=== PATIENT | male | born 1935 | race Caucasian/White ===

== ENCOUNTER 2016-09-12 10:38 | Emergency (ER) | payer BC ==
[~2016-09-12] VITALS: Ht 180.3 cm; Wt 86.6 kg
[~2016-09-12 10:38] MED LIST: ERTA1INJ IV; FURO20TA PO; PRT40 PO; TPRSR/25 PO
[2016-09-12 10:40] VITALS: TEMP 36.6; Ht 180.3 cm; Wt 86.6 kg
[2016-09-12 10:56] VITALS: O2SAT 97
--- NOTE | 2016-09-12 11:22 | EMERGENCY ROOM VISIT NOTE ---
ED Visit Note First contact with patient: 11:08 Resident Physician Supervision Note: I was present with Dr. Jamil during the history and exam. I discussed the case with the resident and agree with the findings and plan as documented in the note. Documented By: Obed Roman Problem List Medical Problems: (1) Anemia Status: Chronic (2) Aneurysm of thoracic aorta Status: Resolved (3) Atrial fibrillation Status: Chronic (4) Benign hypertension Status: Chronic (5) Coronary artery disease Status: Chronic (6) Diastolic heart failure Status: Chronic (7) dilated acending aorta Status: Chronic (8) Dyslipidemia Status: Chronic (9) Iron deficiency Status: Chronic (10) Mitral valve regurgitation Status: Resolved Current/Historical Medications Scheduled Ertapenem Sodium (Invanz), 1 GM IV DAILY Furosemide (Lasix), 20 MG PO QD Metoprolol Succinate (Metoprolol Succinate ER), 25 MG PO BID Pantoprazole (Pantoprazole Sodium), 40 MG PO QAM Allergies Coded Allergies: No Known Allergies (Unverified , 01/08/16) Vital Signs Date Time Temp Pulse Resp B/P Pulse Ox O2 Delivery O2 Flow Rate FiO2 09/12/16 10:56 97 Room Air 09/12/16 10:54 97 Room Air 09/12/16 10:40 36.6 44 20 176/77 94 Room Air Laboratory Results Test 09/12/16 11:19 Departure Information Referrals Priya Enrique DO (PCP) Patient Instructions My [facility]
--- NOTE | 2016-09-12 11:26 | EMERGENCY ROOM VISIT NOTE ---
History First contact with patient: 11:08 Chief Complaint: BRADYCARDIA Stated Complaint: HYPERTENSION, BRADYCARDIA HX: CARDIAC Nursing Triage Summary: Pt reports for 4 days he has been bradycardic in the 40s. Pt reports he normally runs in the 50s. Pt reports headache and SOB. Denies chest pain, dizziness. Pt takes Metoprolol 25mg twice daily. Pt has history of cardiac surgery in 2013. Family reports he has a known abdominal aneurysm History of Present Illness The patient is a 81 year old male who presents to the Emergency Room from home with complaints of elevated blood pressure and low heart rate. He has a history of coronary artery disease and previously received bypass, during which he had a thoracic aortic aneurysm rupture. He also has a history of an iliac aortic aneurysm. He reports usually has blood pressure is in the 120 systolic range but today it was 177 and his heart rate was lower than usual at a rate of 45 beats He has been feeling short of breath on exertion the last 4 days but denies any chest pain currently. He does take a beta sandra every day which is metoprolol succinate 25 mg BID. He reports over the last 5 days he was visiting his son in [facility] and his diet was high in salt content. He knows he needs to maintain a low-salt diet due to his congestive heart failure but reports he did not. He reports since he came back he has noticed his blood pressure has been elevated. He denies any nausea, vomiting, or leg swelling . Review of Systems See HPI for pertinent positives & negatives. A total of 10 systems reviewed and were otherwise negative. Past Medical/Surgical History Medical Problems: (1) Anemia (2) Aneurysm of thoracic aorta (3) Atrial fibrillation (4) Benign hypertension (5) Coronary artery disease (6) Diastolic heart failure (7) dilated acending aorta (8) Dyslipidemia (9) Iron deficiency (10) Mitral valve regurgitation (11) Pancreatitis Family History Diabetes mellitus Gallbladder disease Heart disease Hypertension Social History Smoking Status: Former Smoker Alcohol Use: occasionally Drug Use: none Marital Status: Housing Status: lives with family Occupation Status: retired, other Current/Historical Medications Scheduled Aspirin (Aspirin Ec), 81 MG PO DAILY Atorvastatin (Lipitor), 40 MG PO QPM Lisinopril (Lisinopril), 5 MG PO DAILY Metoprolol Succinate (Metoprolol Succinate ER), 25 MG PO BID Warfarin Sod (Jantoven), 2.5 MG PO DIRECTED Warfarin Sod (Jultoven), 5 MG PO MWF Allergies Coded Allergies: No Known Allergies (Unverified , 09/12/16) Physical Exam Vital Signs Date Time Temp Pulse Resp B/P Pulse Ox O2 Delivery O2 Flow Rate FiO2 09/12/16 14:43 58 18 154/64 98 Room Air 09/12/16 13:17 44 16 163/80 98 Room Air 09/12/16 12:03 44 18 173/75 98 Room Air 09/12/16 11:36 44 09/12/16 10:56 97 Room Air 09/12/16 10:54 97 Room Air 09/12/16 10:40 36.6 44 20 176/77 94 Room Air Physical Exam GENERAL: Awake, alert, well-appearing, in no acute distress HENT: Normocephalic, atraumatic. Oropharynx unremarkable. EYES: Normal conjunctiva. Sclera non-icteric. NECK: Supple. No nuchal rigidity. FROM. No JVD. RESPIRATORY: Clear to auscultation. CARDIAC: Bradycardic, irregular. Extremities warm and well perfused. Pulses equal. ABDOMEN: Soft, non-distended. No tenderness to palpation. No rebound or guarding. No masses. RECTAL: Deferred. MUSCULOSKELETAL: Chest examination reveals no tenderness. The back is symmetrical on inspection without obvious abnormality. There is no CVA tenderness to palpation. No joint edema. LOWER EXTREMITIES: Calves are equal size bilaterally and non-tender. No edema. No discoloration. NEURO: Normal sensorium. No sensory or motor deficits noted. SKIN: No rash or jaundice noted. Medical Decision & Procedures ER Provider Diagnostic Interpretation: CT ANGIOGRAM OF THE CHEST, ABDOMEN, AND PELVIS WITH IV CONTRAST CLINICAL HISTORY: Hypertension. Bradycardia. History of aneurysm and dissection. COMPARISON STUDY: CT angiogram of the chest, abdomen, and pelvis dated 01/02/2016. TECHNIQUE: Following the IV administration of 118 cc of Optiray 320, CT angiogram of the chest, abdomen, and pelvis was performed from the thoracic inlet to the proximal femora. Images are reviewed in the axial, sagittal, and coronal planes. 3-D MIPS images are created and assessed. IV contrast was administered without complication. Automated dose control exposure was utilized. CT DOSE: 893.19 mGy.cm FINDINGS: CHEST: Thyroid: Imaged portions of the thyroid gland are normal in size and attenuation. Thoracic aorta: There is atherosclerotic calcification of the thoracic aorta. The arch demonstrates standard 3-vessel anatomy. There is evidence of previous surgical repair of the ascending thoracic aorta. The ascending thoracic aorta and aortic arch are normal in caliber. There is aneurysmal dilatation of the descending thoracic aorta with significant intraluminal thrombus, which originates just distal to the left subclavian artery takeoff. The descending thoracic aorta measures up to 4.4 cm in maximum diameter. There is dissection identified within the abdominal aorta, and the thrombus identified may represent a thrombosed dissection. The arch vessels are widely patent and there is no dissection identified in the arch vessels. There is unchanged appearance of a tiny outpouching of contrast seen from the ascending thoracic aorta on image #170 measuring 5 mm. Pulmonary vasculature: The pulmonary trunk is dilated, measuring up to 3.9 cm in transverse diameter. This suggests pulmonary artery hypertension. There are no filling defects identified in the central pulmonary vessels to indicate pulmonary embolus. Note that this examination was not protocoled for evaluation of the pulmonary arteries. Heart: The patient is status post midline sternotomy. There is evidence of mitral valve surgery. The coronary arteries are densely calcified. The heart is enlarged and without pericardial effusion. Lungs and pleural spaces: Emphysematous changes are noted. There are small pleural effusions. There is significant bibasilar atelectasis and scarring. A 3 mm left upper lobe nodule on image #124 is unchanged. Scattered calcified granulomas are identified. There is no airspace consolidation typical for pneumonia. The trachea and central airways are clear. Mediastinum: Scattered subcentimeter mediastinal lymph nodes are not pathologically enlarged by size criteria. Rita: Clear. Axillae: There is no axillary lymphadenopathy. Bony thorax: The skeletal structures are osteopenic. No lytic or blastic lesions are identified. There is a healed right-sided rib fracture. Degenerative changes are seen in the shoulders and thoracic spine. ABDOMEN AND PELVIS: Liver: The contrast-enhanced liver is normal in size, contour, and attenuation. There is no intrahepatic or ductal dilatation. Gallbladder: Unremarkable. Spleen: Normal in size and attenuation noting heterogeneous arterial phase enhancement. Pancreas: There is moderate glandular atrophy of the pancreas which is grossly unremarkable. Adrenal glands: Unremarkable. Kidneys: The kidneys are atrophic, asymmetrically greater on the right than the left. The left kidney enhances homogeneously. There is heterogeneously diminished perfusion of the right kidney as compared to the left. No hydronephrosis is seen. A 10 mm cortical hypodensity in the right kidney seen on axial image #306 may represent a cyst but is too small for definitive characterization. This is unchanged from previous. Abdominal aorta and iliac arteries: There is advanced atherosclerotic calcification and ectasia of the abdominal aorta. There is a dissection flap identified at the esophageal hiatus, which extends peripherally to the aortic bifurcation and into the left external iliac artery. Significant portions of the dissection appear thrombosed, with thrombosis seen below the takeoff of the right renal artery and extending to just above the origin of the inferior mesenteric artery. Thrombus is also identified within the dissection in the left common iliac artery. The abdominal aorta is widely patent. The iliac vessels are patent bilaterally. There is aneurysm of the right common iliac artery which measures up to 3.1 cm. There is a right internal iliac artery aneurysm which measures up to 1.5 cm. Major branches of the abdominal aorta: The celiac trunk is widely patent. Dissection extends into the origin of the celiac trunk, and the celiac artery straddles the true and false lumens. The left renal artery and the superior mesenteric artery arise from the true lumen. The right renal artery and the inferior mesenteric artery arise from the false lumen. The single renal arteries are widely patent, as are the superior and inferior mesenteric arteries. Hepatic arterial anatomy is conventional. The splenic artery is patent. Bowel: The small bowel and colon are normal in course and caliber. There is moderate sigmoid diverticulosis without CT evidence of acute diverticulitis. Mild colonic fecal retention is observed. The appendix is not identified and reported surgically absent. Peritoneum: There is no intraperitoneal free air or abdominal ascites. There is a fat-containing umbilical hernia. Lymphadenopathy: None. Pelvic viscera: The bladder is grossly unremarkable. The prostate gland and seminal vesicles are normal as visualized. Surgical clips are noted in the left groin. Skeletal structures: The skeletal structures are osteopenic. No lytic or blastic lesions are seen. There is mild lumbosacral spondylosis. IMPRESSION: 1. Again seen are postoperative changes consistent with graft repair of the ascending thoracic aorta. 2. 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 A discrete dissection flap is seen at the level of the esophageal hiatus and extends distally into the left external iliac artery. This likely originates in the thoracic aorta. These findings are unchanged from 01/02/2016. 3. 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 There is significant intraluminal thrombus, which originates just distal to the subclavian artery takeoff. This likely represents a thrombosed false lumen. 4. There is a 5 mm focal outpouching of contrast identified from the ascending thoracic aorta. This likely represents postsurgical change. A small penetrating ulcer is considered less likely but not excluded. This is unchanged from 01/02/2016. 5. The right renal artery and the inferior mesenteric artery arise from the false lumen. The left renal artery and the superior mesenteric artery arise from the true lumen. 6. The celiac artery straddles the dissection flap, and there is minimal extension of the dissection into the celiac trunk. 7. The kidneys are atrophic. The right kidney is asymmetrically atrophic as compared to left and demonstrates diminished perfusion as compared to the left kidney. This likely represents chronic ischemic change, as the right kidney is supplied from the false lumen. 8. Cardiomegaly and emphysema. 9. Small pleural effusions. 10. No acute infectious or inflammatory findings are seen in the abdomen or pelvis. 11. Moderate sigmoid diverticulosis without CT evidence of acute diverticulitis. 12. 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 13. Additional findings as above. Laboratory Results 09/12/16 11:00 Red Blood Count 4.13, Mean Corpuscular Volume 94.4, Mean Corpuscular Hemoglobin 33.2, Mean Corpuscular Hemoglobin Concent 35.1, Mean Platelet Volume 9.3, Neutrophils (%) (Auto) 67.1, Lymphocytes (%) (Auto) 18.2, Monocytes (%) (Auto) 10.9, Eosinophils (%) (Auto) 3.0, Basophils (%) (Auto) 0.5, Neutrophils # (Auto ) 4.31, Lymphocytes # (Auto) 1.17, Monocytes # (Auto) 0.70, Eosinophils # (Auto ) 0.19, Basophils # (Auto) 0.03 09/12/16 11:00 Test 09/12/16 11:00 09/12/16 11:35 White Blood Count 6.42 K/uL (4.8-10.8) Red Blood Count 4.13 M/uL (4.7-6.1) Hemoglobin 13.7 g/dL (14.0-18.0) Hematocrit 39.0 % (42-52) Mean Corpuscular Volume 94.4 fL (80-100) Mean Corpuscular Hemoglobin 33.2 pg (25-34) Mean Corpuscular Hemoglobin Concent 35.1 g/dl (32-36) Platelet Count 129 K/uL (130-400) Mean Platelet Volume 9.3 fL (7.4-10.4) Neutrophils (%) (Auto) 67.1 % Lymphocytes (%) (Auto) 18.2 % Monocytes (%) (Auto) 10.9 % Eosinophils (%) (Auto) 3.0 % Basophils (%) (Auto) 0.5 % Neutrophils # (Auto) 4.31 K/uL (1.4-6.5) Lymphocytes # (Auto) 1.17 K/uL (1.2-3.4) Monocytes # (Auto) 0.70 K/uL (0.11-0.59) Eosinophils # (Auto) 0.19 K/uL (0-0.5) Basophils # (Auto) 0.03 K/uL (0-0.2) RDW Standard Deviation 46.1 fL (36.4-46.3) RDW Coefficient of Variation 13.3 % (11.5-14.5) Immature Granulocyte % (Auto) 0.3 % Immature Granulocyte # (Auto) 0.02 K/uL (0.00-0.02) Prothrombin Time 22.1 SECONDS (9.0-12.0) Prothromb Time International Ratio 2.0 (0.9-1.1) Activated Partial Thromboplast Time 35.7 SECONDS (21.0-31.0) Partial Thromboplastin Ratio 1.4 Est Creatinine Clear Calc Drug Dose 47.4 ml/min Estimated GFR () 59.3 Estimated GFR (Non- 51.2 BUN/Creatinine Ratio 17.1 (10-20) Calcium Level 8.6 mg/dl (8.5-10.1) Total Bilirubin 0.9 mg/dl (0.2-1) Aspartate Amino Transf (AST/SGOT) 38 U/L (15-37) Alanine Aminotransferase (ALT/SGPT) 42 U/L (12-78) Alkaline Phosphatase 106 U/L (45-117) Total Protein 7.2 gm/dl (6.4-8.2) Albumin 3.8 gm/dl (3.4-5.0) Globulin 3.4 gm/dl (2.5-4.0) Albumin/Globulin Ratio 1.1 (0.9-2) Bedside Hemoglobin 13.3 g/dl (14.0-18.0) Bedside Hematocrit 39 % (42-52) Bedside Sodium 139 mEq/L (135-144) Bedside Potassium 4.5 mEq/L (3.3-5.0) Bedside Chloride 98 mEq/L (101-112) Bedside Total CO2 29 mEq/l (24-31) Anion Gap 17.0 mmol/L (16-25) Bedside Blood Urea Nitrogen 24 mg/dl (7-18) Bedside Creatinine 1.1 mg/dl (0.6-1.3) Bedside Glucose (other) 82 mg/dl (70-99) Bedside Ionized Calcium (Chito) 1.19 mmol/l (1.12-1.32) Medications Administered Medications (Trade) Dose Ordered Sig/Loretta Route Start Time Stop Time Status Last Admin Dose Admin Sodium Chloride (Nss 500ml) 500 ml @ 999 mls/hr Q31M STAT IV 09/12/16 13:11 09/12/16 13:41 DC 09/12/16 13:15 999 MLS/HR ECG Indication: chest pain Rhythm: sinus bradycardia Findings: 1st degree AV block Change: no significant change ED Course 1105:I evaluated the patient and C4. A complete history and physical was performed 11:10: I discussed the case with Dr. Roman attending physician I called the CT department and discussed how I wanted to get a stat CT aorta angiogram to evaluate for any active bleeding from his aneurysm and include a thoracic and iliac regions. I ordered a CBC CMP i-STAT chest x-ray. He had an IV placed and labs were drawn. 12:45: I re-evaluated the patient. His BP was still in the 150's systolic. His HR remained in the 45-50 bpm range. He did not have any other new symptoms. We discussed how his CT Angiogram did not show any active bleeding. 13:11: I provided a fluid bolus of 500 mL of normal saline over 1 hour. 14:20: His blood pressure improved after this fluid bolus. It was then 154/64. 14:38: We ambulated the patient and he tolerated this well his blood pressure was again 154/64 with a heart rate of 58. He was deemed stable for discharge and was discharged home in good condition and advised to follow-up with his PCP and maori physiotherapist. Medical Decision This is an 81-year-old male with history of coronary artery disease status post CABG, and multiple previous thoracic and iliac aortic aneurysms, who presents with hypertension and bradycardia, without any symptoms. Differential includes aortic aneurysm dissection, PR, dehydration, pneumonia, anemia. He had an IV placed and labs drawn. He had an i-STAT completed so his creatinine to be evaluated prior to CAT scan. 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 He seems slightly dehydrated and we provided him with a bolus of IV fluids which helped improve his blood pressure. His bradycardia is likely due to his beta sandra, as he is on metoprolol succinate twice a day at a dose of 25 mg. He ambulated well and his blood pressure had decreased throughout his stay in the ED. He was deemed stable for discharge and was sent home in good condition. He was advised to follow-up with his maori physiotherapist Dr. Stack and his PCP within the week. Departure Information Dispostion Home / Self-Care Condition GOOD Referrals Priya Enrique DO (PCP) Patient Instructions My [facility] Resident Tracking Resident Involvement: Resident Care Provided Care Provided: Adult ED
[2016-09-12 11:27] LABS: BASO % 0.5 %; BASO ABS # 0.03 K/uL (0-0.2); COMPLETE YES; IG% 0.3 %; LYMPH % 18.2 %; LYMPH ABS # 1.17 K/uL (1.2-3.4); MEAN CELL VOLUME 94.4 fL (80-100); MEAN CORPUSCULAR HEMOGLOBIN 33.2 pg (25-34); MEAN CORPUSCULAR HGB CONC 35.1 g/dl (32-36); MEAN PLATELET VOLUME 9.3 fL (7.4-10.4); MONO % 10.9 %; NEUT % 67.1 %; PLATELET COUNT 129 K/uL (130-400); RED BLOOD COUNT 4.13 M/uL (4.7-6.1); WHITE BLOOD COUNT 6.42 K/uL (4.8-10.8)
[2016-09-12] MEDS ORDERED: OPTIRAY 320 IV PRN (11:30)
[2016-09-12] MEDS ORDERED: ASPI81TA28 PO (11:37)
[2016-09-12] MEDS ORDERED: LSN5 PO (11:37)
[2016-09-12] MEDS ORDERED: ATOR-24 PO (11:37)
[2016-09-12] MEDS ORDERED: WARF5TAB7 PO (11:38)
[2016-09-12] MEDS ORDERED: WARF2.5T8 PO (11:38)
[2016-09-12 11:42] LABS: PARTIAL THROMBOPLASTIN RATIO 1.4; PROTHROMBIN TIME (PATIENT) 22.1 SECONDS (9.0-12.0)
[2016-09-12 11:43] LABS: BUN/CREATININE RATIO 17.1 (10-20); CALCIUM 8.6 mg/dl (8.5-10.1); CREATININE 1.3 mg/dl (0.60-1.40); POTASSIUM 4.5 mmol/L (3.5-5.1)
[2016-09-12 11:45] LABS: ISTAT CREATININE 1.1 mg/dl (0.6-1.3); ISTAT HEMOGLOBIN 13.3 g/dl (14.0-18.0); ISTAT IONIZED CALCIUM 1.19 mmol/l (1.12-1.32)
[2016-09-12 11:46] LABS: ALB/GLOB RATIO 1.1 (0.9-2)
--- NOTE | 2016-09-12 12:17 | DIAGNOSTIC IMAGING REPORT ---
CT ANGIOGRAM OF THE CHEST, ABDOMEN, AND PELVIS WITH IV CONTRAST CLINICAL HISTORY: Hypertension. Bradycardia. History of aneurysm and dissection. COMPARISON STUDY: CT angiogram of the chest, abdomen, and pelvis dated 01/02/2016. TECHNIQUE: Following the IV administration of 118 cc of Optiray 320, CT angiogram of the chest, abdomen, and pelvis was performed from the thoracic inlet to the proximal femora. Images are reviewed in the axial, sagittal, and coronal planes. 3-D MIPS images are created and assessed. IV contrast was administered without complication. Automated dose control exposure was utilized. CT DOSE: 893.19 mGy.cm FINDINGS: CHEST: Thyroid: Imaged portions of the thyroid gland are normal in size and attenuation. Thoracic aorta: There is atherosclerotic calcification of the thoracic aorta. The arch demonstrates standard 3-vessel anatomy. There is evidence of previous surgical repair of the ascending thoracic aorta. The ascending thoracic aorta and aortic arch are normal in caliber. There is aneurysmal dilatation of the descending thoracic aorta with significant intraluminal thrombus, which originates just distal to the left subclavian artery takeoff. The descending thoracic aorta measures up to 4.4 cm in maximum diameter. There is dissection identified within the abdominal aorta, and the thrombus identified may represent a thrombosed dissection. The arch vessels are widely patent and there is no dissection identified in the arch vessels. There is unchanged appearance of a tiny outpouching of contrast seen from the ascending thoracic aorta on image #170 measuring 5 mm. Pulmonary vasculature: The pulmonary trunk is dilated, measuring up to 3.9 cm in transverse diameter. This suggests pulmonary artery hypertension. There are no filling defects identified in the central pulmonary vessels to indicate pulmonary embolus. Note that this examination was not protocoled for evaluation of the pulmonary arteries. Heart: The patient is status post midline sternotomy. There is evidence of mitral valve surgery. The coronary arteries are densely calcified. The heart is enlarged and without pericardial effusion. Lungs and pleural spaces: Emphysematous changes are noted. There are small pleural effusions. There is significant bibasilar atelectasis and scarring. A 3 mm left upper lobe nodule on image #124 is unchanged. Scattered calcified granulomas are identified. There is no airspace consolidation typical for pneumonia. The trachea and central airways are clear. Mediastinum: Scattered subcentimeter mediastinal lymph nodes are not pathologically enlarged by size criteria. Rita: Clear. Axillae: There is no axillary lymphadenopathy. Bony thorax: The skeletal structures are osteopenic. No lytic or blastic lesions are identified. There is a healed right-sided rib fracture. Degenerative changes are seen in the shoulders and thoracic spine. ABDOMEN AND PELVIS: Liver: The contrast-enhanced liver is normal in size, contour, and attenuation. There is no intrahepatic or ductal dilatation. Gallbladder: Unremarkable. Spleen: Normal in size and attenuation noting heterogeneous arterial phase enhancement. Pancreas: There is moderate glandular atrophy of the pancreas which is grossly unremarkable. Adrenal glands: Unremarkable. Kidneys: The kidneys are atrophic, asymmetrically greater on the right than the left. The left kidney enhances homogeneously. There is heterogeneously diminished perfusion of the right kidney as compared to the left. No hydronephrosis is seen. A 10 mm cortical hypodensity in the right kidney seen on axial image #306 may represent a cyst but is too small for definitive characterization. This is unchanged from previous. Abdominal aorta and iliac arteries: There is advanced atherosclerotic calcification and ectasia of the abdominal aorta. There is a dissection flap identified at the esophageal hiatus, which extends peripherally to the aortic bifurcation and into the left external iliac artery. Significant portions of the dissection appear thrombosed, with thrombosis seen below the takeoff of the right renal artery and extending to just above the origin of the inferior mesenteric artery. Thrombus is also identified within the dissection in the left common iliac artery. The abdominal aorta is widely patent. The iliac vessels are patent bilaterally. There is aneurysm of the right common iliac artery which measures up to 3.1 cm. There is a right internal iliac artery aneurysm which measures up to 1.5 cm. Major branches of the abdominal aorta: The celiac trunk is widely patent. Dissection extends into the origin of the celiac trunk, and the celiac artery straddles the true and false lumens. The left renal artery and the superior mesenteric artery arise from the true lumen. The right renal artery and the inferior mesenteric artery arise from the false lumen. The single renal arteries are widely patent, as are the superior and inferior mesenteric arteries. Hepatic arterial anatomy is conventional. The splenic artery is patent. Bowel: The small bowel and colon are normal in course and caliber. There is moderate sigmoid diverticulosis without CT evidence of acute diverticulitis. Mild colonic fecal retention is observed. The appendix is not identified and reported surgically absent. Peritoneum: There is no intraperitoneal free air or abdominal ascites. There is a fat-containing umbilical hernia. Lymphadenopathy: None. Pelvic viscera: The bladder is grossly unremarkable. The prostate gland and seminal vesicles are normal as visualized. Surgical clips are noted in the left groin. Skeletal structures: The skeletal structures are osteopenic. No lytic or blastic lesions are seen. There is mild lumbosacral spondylosis. IMPRESSION: 1. Again seen are postoperative changes consistent with graft repair of the ascending thoracic aorta. 2. 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 A discrete dissection flap is seen at the level of the esophageal hiatus and extends distally into the left external iliac artery. This likely originates in the thoracic aorta. These findings are unchanged from 01/02/2016. 3. 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 There is significant intraluminal thrombus, which originates just distal to the subclavian artery takeoff. This likely represents a thrombosed false lumen. 4. There is a 5 mm focal outpouching of contrast identified from the ascending thoracic aorta. This likely represents postsurgical change. A small penetrating ulcer is considered less likely but not excluded. This is unchanged from 01/02/2016. 5. The right renal artery and the inferior mesenteric artery arise from the false lumen. The left renal artery and the superior mesenteric artery arise from the true lumen. 6. The celiac artery straddles the dissection flap, and there is minimal extension of the dissection into the celiac trunk. 7. The kidneys are atrophic. The right kidney is asymmetrically atrophic as compared to left and demonstrates diminished perfusion as compared to the left kidney. This likely represents chronic ischemic change, as the right kidney is supplied from the false lumen. 8. Cardiomegaly and emphysema. 9. Small pleural effusions. 10. No acute infectious or inflammatory findings are seen in the abdomen or pelvis. 11. Moderate sigmoid diverticulosis without CT evidence of acute diverticulitis. 12. 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 13. Additional findings as above. Electronically signed by: Nik Herr M.D. 09/12/2016 12:16 PM Dictated Date/Time: 09/12/2016 11:57 AM
[2016-09-12] MEDS ORDERED: SODIUM CHLORIDE 0.9% 500ML 500 ML IV STA (13:11)
[2016-09-12 14:43] VITALS: BP 154/64; PULSE 58; O2SAT 98
== END 2016-09-12 14:57 | disposition home or self-care (01) ==
LOC: C.EDB 10:40 → C.EDC 14:57
DX: I10 Essential (primary) hypertension (principal); R00.1 Bradycardia, unspecified; I25.10 Atherosclerotic heart disease of native coronary artery without angina pectoris; I48.91 Unspecified atrial fibrillation; Z79.01 Long term (current) use of anticoagulants; Z79.82 Long term (current) use of aspirin; Z79.899 Other long term (current) drug therapy; Z95.1 Presence of aortocoronary bypass graft

== ENCOUNTER → 2017-05-24 | Outpatient (CLI) | payer BC ==
[~2017-05-24] MED LIST changes: +ASPI81TA28 PO; +ATOR-24 PO; -ERTA1INJ IV; -FURO20TA PO; +LSN5 PO; +OPTIRAY 320 IV PRN; -PRT40 PO; +WARF2.5T8 PO; +WARF5TAB7 PO
[2017-05-24 15:55] LABS: ISTAT CREATININE 1.3 mg/dl (0.6-1.3); ISTAT HEMOGLOBIN 13.3 g/dl (14.0-18.0); ISTAT IONIZED CALCIUM 1.2 mmol/l (1.12-1.32)
--- NOTE | 2017-05-24 16:04 | DIAGNOSTIC IMAGING REPORT ---
CHEST ANGIO WITH CONTRAST CLINICAL HISTORY: 82 years-old Male presenting with ^HX THORACIC DISSECTION WITH REPAIR. TECHNIQUE: Multidetector CT angiography of the chest was performed after administration of intravenous contrast. 3-D volumetric and/or maximum intensity projection (MIP) images were subsequently reconstructed for review. IV contrast: 94 mL of Optiray 320. A dose lowering technique was used consistent with the principles of ALARA (as low as reasonably achievable). COMPARISON: 09/12/2016. CT DOSE (mGy.cm): The estimated cumulative dose is 569.87 mGy.cm. FINDINGS: Stocking Inspector topogram: Median sternotomy wires and prosthetic mitral valve noted. Cholecystectomy clips. Vasculature: The study is adequate for assessment of the vasculature. Postsurgical changes of the thoracic aorta involving the ascending aorta proximal to the origin of the innominate. Unchanged appearance of focal outpouching along the right lateral aspect of the ascending aorta (series 4 image 161), although this may represent postsurgical material. No noncontrast phase to confirm this. Atherosclerosis of the three-vessel aortic arch. 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 The descending thoracic aorta measures up to 4.8 cm in maximal transverse dimension, previously 4.8 cm when remeasured at a comparable level. The dissection flap extends beyond the aortic hiatus, where there is opacification of the false lumen in the abdomen. The sella iliac trunk and superior mesenteric artery arise from the true lumen and are grossly normal appearing in the visualized portions. No filling defect within the pulmonary arteries to suggest embolus. Main pulmonary artery is enlarged measuring 3.6 cm in maximal transverse dimension, unchanged. Prosthetic mitral valve. Multichamber enlargement of the heart. Coronary artery calcification. Remaining chest: On soft tissue windows, normal thyroid. Left gynecomastia. Scattered subcentimeter mediastinal and hilar lymph nodes, possibly reactive. No pericardial or pleural effusion. Congenital hypoplasia of the medial segments of the left hepatic lobe. Cholecystectomy clips. Conventional hepatic arterial anatomy. On lung windows, paramediastinal consolidation in the left lower lobe with curvilinear architectural distortion consistent with rounded atelectasis. Overlying minimal pleural thickening. This is unchanged from prior exam. Suggestion of centrilobular groundglass nodularity at the apices, greater on the right. Bandlike opacity with volume loss in the right middle lobe likely atelectasis. Scattered additional sites of atelectasis. Mild bronchial wall thickening. Airways patent. On bone windows, degenerative changes of the spine. Incomplete osseous bridging of the sternotomy. IMPRESSION: 1. Stable post surgical changes of ascending aortic aneurysm repair. 2. Stable appearance of the type B dissection of the descending thoracic aorta. The false lumen remains nonopacified in the thoracic portion. Stable aneurysmal dilatation of the descending thoracic aorta. 3. Stable focal outpouching from the right lateral aspect of the ascending aorta, possibly postsurgical material. Future examinations can be performed with a noncontrast phase to confirm this finding. 4. Centrilobular groundglass opacity with an apical predominance. This can be seen in the setting of respiratory bronchiolitis/smoking related lung injury. Correlate with clinical history. 5. Stable multifocal sites of cicatrizing atelectasis including rounded atelectasis in the left lower lobe. Electronically signed by: Weston Aguilar M.D. 05/24/2017 4:03 PM Dictated Date/Time: 05/24/2017 3:50 PM
--- NOTE | 2017-05-24 16:16 | DIAGNOSTIC IMAGING REPORT ---
ANGIO ABD/PELVIS WITH CONTRAST CLINICAL HISTORY: 82 years-old Male presents with abdominal aortic aneurysm. Follow-up study. COMPARISON STUDY: CTA 09/12/2016 TECHNIQUE: Following the IV administration of 94 cc of Optiray 320, CT angiogram of the abdomen and pelvis was performed from the lung bases the proximal femora. Images are reviewed in the axial, sagittal, and coronal planes. 3-D MIPS images are created and assessed. IV contrast was administered without complication. A dose lowering technique was utilized adhering to the principles of ALARA. FINDINGS: CTA: Moderate to severe chamber cardiac enlargement. Trace left pleural effusion. Aortic annular prosthetic device is noted. Prosthesis of the ascending thoracic aorta is only partially imaged. Prior median sternotomy. Fusiform aneurysmal dilation of the descending thoracic aorta is again seen measuring up to 4.3 cm which is unchanged. Dissection flap of the aorta seen ascending from the esophageal hiatus inferiorly into the left external iliac artery as seen on image 330 series 5. Thrombosed false lumen of the lower thorax again seen. The right renal artery and inferior mesenteric artery are again seen arising from the false lumen. The celiac trunk straddles the intimal flap. The superior mesenteric and left renal arteries originate from the true lumen. Aneurysmal dilation of the right common iliac artery is again seen, 2.8 cm and 1.6 cm aneurysm dilation of the right internal iliac artery. Both of these findings appear stable from comparison. Moderate to extensive mixed plaquing of the aorta redemonstrated. No new aneurysm, high-grade stenosis or proximal branch occlusion identified. CT ABDOMEN/PELVIS: Within bibasilar consolidative and groundglass opacities of the lung bases suggest areas of scarring and/or atelectasis. There is a calcified granuloma of the basal right lower lobe. No pneumoperitoneum identified. Prior cholecystectomy. The liver, spleen, pancreas and adrenal glands are within normal limits. Mild atrophy with areas of scarring are seen to the left kidney. Moderate to severe atrophy of the right kidney with decreased perfusion compared to the left is a stable finding. Focal area of decreased attenuation involving the superior pole right kidney, 1.0 cm suggests renal cyst however is indeterminate. Mild nonspecific bilateral perinephric stranding. Ureters are unremarkable. No renal calculi. Urinary bladder and prostate demonstrate no acute abdomen. There is no bulky adenopathy identified. No bowel obstruction or focal bowel wall thickening identified. Moderate to extensive sigmoid colon diverticulosis without CT evidence of acute diverticulitis. The appendix is not definitively seen. No secondary signs of acute appendicitis. Soft tissues are unremarkable. The bones appear mildly osteopenic. Multilevel facet arthropathy and endplate spurring about the spine. IMPRESSION: 1. Stable exam from comparison study 09/12/2016. Dissection of the descending thoracic and abdominal aorta is again seen with areas of thrombosed false lumen. Discrete intimal flap is again seen extending from the esophageal diaphragmatic hiatus into the left common and external iliac arteries. The right renal and inferior mesenteric arteries arise from the false lumen. 2. Mild left and moderate to severe right renal atrophy with decreased perfusion of the right kidney again seen suggesting sequela of chronic ischemia. 3. Aneurysmal dilation of the right common and internal iliac arteries are unchanged. 4. Stable aneurysm dilation of the descending thoracic aorta, 4.3 cm. 5. Colonic diverticulosis without diverticulitis. The above report was generated using voice recognition software. It may contain grammatical, syntax or spelling errors. Electronically signed by: Ramírez Hernandez M.D. 05/24/2017 4:14 PM Dictated Date/Time: 05/24/2017 4:01 PM
== END | disposition home or self-care (01) ==
LOC: C.CTS 14:37
PROVIDERS: ATTEND Surgery Vascular Surgery
DX: I71.4 Abdominal aortic aneurysm, without rupture (principal); I71.01 Dissection of thoracic aorta; I72.3 Aneurysm of iliac artery; Z98.890 Other specified postprocedural states

== ENCOUNTER → 2017-08-17 | Outpatient (CLI) | payer BC ==
[~2017-08-17] MED LIST changes: -OPTIRAY 320 IV PRN
[2017-08-17 11:07] LABS: BASO % 0.7 %; BASO ABS # 0.04 K/uL (0-0.2); EOS % 8.2 %; EOS ABS # 0.44 K/uL (0-0.5); HEMATOCRIT 40.5 % (42-52); IG# 0.01 K/uL (0.00-0.02); LYMPH % 20.9 %; LYMPH ABS # 1.12 K/uL (1.2-3.4); MEAN CELL VOLUME 96.7 fL (80-100); MEAN CORPUSCULAR HEMOGLOBIN 33.4 pg (25-34); MEAN CORPUSCULAR HGB CONC 34.6 g/dl (32-36); MEAN PLATELET VOLUME 9.2 fL (7.4-10.4); MONO % 10.7 %; MONO ABS # 0.57 K/uL (0.11-0.59); NEUT % 59.3 %; NEUT ABS # 3.17 K/uL (1.4-6.5); PLATELET COUNT 121 K/uL (130-400); RED CELL DISTRIBUTION WIDTH CV 13.5 % (11.5-14.5); RED CELL DISTRIBUTION WIDTH SD 47.5 fL (36.4-46.3); WHITE BLOOD COUNT 5.35 K/uL (4.8-10.8)
[2017-08-17 11:27] LABS: ALT/SGPT 36 U/L (12-78); BLOOD UREA NITROGEN 22 mg/dl (7-18); CALCIUM 8.6 mg/dl (8.5-10.1); CARBON DIOXIDE 31 mmol/L (21-32); CHOLESTEROL 147 mg/dl (0-200); GLUCOSE 90 mg/dl (70-99); POTASSIUM 4.5 mmol/L (3.5-5.1); SODIUM 138 mmol/L (136-145)
[2017-08-17 11:30] LABS: LDL CHOLESTEROL CALCULATED 75 mg/dl
== END | disposition home or self-care (01) ==
LOC: C.LABBC 08:26
PROVIDERS: ATTEND Family Medicine
DX: I12.9 Hypertensive chronic kidney disease with stage 1 through stage 4 chronic kidney disease, or unspecified chronic kidney disease (principal); N18.3 Chronic kidney disease, stage 3 (moderate); E78.5 Hyperlipidemia, unspecified; I25.10 Atherosclerotic heart disease of native coronary artery without angina pectoris

== ENCOUNTER → 2018-02-09 | Outpatient (CLI) | payer BC ==
[~2018-02-09] MED LIST changes: +LISI-730 PO; -LSN5 PO
[2018-02-09 10:32] LABS: BASO % 0.6 %; BASO ABS # 0.03 K/uL (0-0.2); EOS % 5.9 %; EOS ABS # 0.32 K/uL (0-0.5); HEMATOCRIT 39.8 % (42-52); HEMOGLOBIN 13.8 g/dL (14.0-18.0); IG# 0.02 K/uL (0.00-0.02); LYMPH % 25.4 %; LYMPH ABS # 1.38 K/uL (1.2-3.4); MEAN CELL VOLUME 96.6 fL (80-100); MEAN CORPUSCULAR HEMOGLOBIN 33.5 pg (25-34); MEAN CORPUSCULAR HGB CONC 34.7 g/dl (32-36); MEAN PLATELET VOLUME 9.6 fL (7.4-10.4); MONO % 11.4 %; MONO ABS # 0.62 K/uL (0.11-0.59); NEUT % 56.3 %; NEUT ABS # 3.06 K/uL (1.4-6.5); PLATELET COUNT 131 K/uL (130-400); RED CELL DISTRIBUTION WIDTH CV 13.4 % (11.5-14.5); RED CELL DISTRIBUTION WIDTH SD 47.2 fL (36.4-46.3); WHITE BLOOD COUNT 5.43 K/uL (4.8-10.8)
[2018-02-09 10:42] LABS: BLOOD UREA NITROGEN 26 mg/dl (7-18); CALCIUM 8.8 mg/dl (8.5-10.1); CARBON DIOXIDE 30 mmol/L (21-32); CREATININE 1.18 mg/dl (0.60-1.40); GLUCOSE 92 mg/dl (70-99); POTASSIUM 4.4 mmol/L (3.5-5.1); SODIUM 139 mmol/L (136-145)
== END | disposition home or self-care (01) ==
LOC: C.LABBC 07:42
PROVIDERS: ATTEND Family Medicine
DX: I25.10 Atherosclerotic heart disease of native coronary artery without angina pectoris (principal)

== ENCOUNTER 2018-11-25 06:30 | Observation (INO) ==
[~2018-11-25 06:30] MED LIST changes: -ASPI81TA28 PO; -ATOR-24 PO; +CEFAZOLIN 1000MG 1,000 MG/7.5 ML SYR IV SCH; +CEFAZOLIN 2000MG 2,000 MG/15 ML SYR IV SCH; -LISI-730 PO; +LR 15ML/HR IV SCH; -TPRSR/25 PO; -WARF2.5T8 PO; -WARF5TAB7 PO
[2018-11-25] MEDS ORDERED: BACITRACIN OINT 0.9 GM PKT ONE (08:10)
[2018-11-25] MEDS ORDERED: BACITRACIN INJ 50,000 UNIT VIAL ONE (08:11)
[2018-11-25] MEDS ORDERED: LIDOCAINE HCL 1% 20 ML VIAL ONE (08:11)
[2018-11-25] MEDS ORDERED: MIDAZOLAM HCL 5 MG/ML 1 ML VIAL ONE (08:15)
[2018-11-25] MEDS ORDERED: fentaNYL citrate 100 MCG/2 ML VIAL ONE (08:15)
--- NOTE | 2018-11-25 08:21 | History & Physical Bridge Note ---
Date of Service November 25, 2018 History & Physical Bridge Note I have examined the patient, reviewed the History & Physical and in the interval since the performance of the History & Physical I have noted the following changes of clinical significance: no changes noted. I reviewed the indications, procedure, risks and alternatives with him and his and daughter and they understand and he agrees to proceed. Consent obtained. I reviewed the risks of conscious sedation and he agrees. Consent obtained.
--- NOTE | 2018-11-25 08:23 | Pre Anesthesia Assessment ---
Date of Service November 25, 2018 Pre Sedation Assessment Vital Signs Temp Pulse Resp BP Pulse Ox 11/25/18 06:44 36.5 C 91 H 18 134/91 93 Cardiovascular Additional Comments: Irregular rate Respiratory normal respiratory effort, lungs clear to auscultation Pre-Sedation Airway Assessment Smoking Status: Former smoker Hx Sleep Apnea: No Hx Difficult Intubation: No Short, Thick Neck: No Thyromental Distance: > or= 3.5 Finger Breadths Mallampati Class: I ASA III NPO Status Date of Last Intake of Fluids: 11/24/18 Date of Last Intake of Solid Food: 11/24/18 Procedure Planning Contraindications for Sedation: none Current Medications Reviewed: Yes Notes The planned sedation has been discussed with the patient. Informed Consent was obtained. I have identified the patient, determined the appropriateness of sedation and have assessed the patient immediately prior to the procedure. All medicine(s) and interventions are by my order.
--- NOTE | 2018-11-25 09:50 | Operative Report ---
Post Operative Report Pre & Post Diagnosis Operation Date: 11/25/18 08:00 Preoperative diagnosis: Atrial fibrillation with symptomatic pauses Postoperative diagnosis: Same Procedure Operation Date: 11/25/18 08:00 Actual Procedures p Pacer with A/V Leads (Dual) - Mango Ojeda MD Surgeon Mango Ojeda MD Meat Passer None Estimated Blood Loss 30 Findings Consistent with Post-Op Diagnosis Good lead position, excellent thresholds Specimens None Complications none Disposition Accompanied Patient To Recovery: No Disposition: PCU Description of Procedure After obtaining informed consent for the procedure, the patient was brought to the laboratory and prepped and draped in the standard sterile manner. The left prepectoral region was anesthetized with 1% lidocaine local anesthetic and left axillary venipuncture was performed by percutaneous technique and a guidewire placed through the left subclavian vein into the superior vena cava. The area was further infiltrated with 1% lidocaine local anesthetic and a 5 cm incision was made parallel to the left clavicle and 2 cm below it and carried down to the anterior pectoralis fascia. A pacemaker pocket was formed by blunt dissection anterior to the pectoralis fascia and a bacitracin-soaked sponge (50,000 units in 50 cc normal saline solution) was placed in the pocket. An 8 [employer] lead introducer was placed over the guidewire into the left subclavian vein, the dilator and guidewire were removed and a bipolar active fixation steroid tipped ventricular lead was advanced through the introducer into the superior vena cava. A guidewire was placed through the introducer and the introducer was stripped from the lead and guidewire. Another 8 [employer] lead introducer was placed over the guidewire into the left subclavian vein, the dilator and guidewire were removed and a bipolar active fixation steroid tipped atrial lead was advanced through the introducer into the superior vena cava. A guidewire was placed back through the introducer and the introducer was stripped from the lead and guidewire. Using a curved stylette the ventricular lead was advanced through the right ventricular outflow tract into the pulmonary artery and then using a straight stylette was positioned in the right ventricular apex. The screw was extended fixing the lead in position. Pacing and sensing thresholds were evaluated in bipolar configuration and are recorded on the implant data sheet. Using a curved stylette the atrial lead was positioned in the region of the atrial appendage and the screw extended fixing the lead in position. Pacing and sensing thresholds were evaluated in bipolar configuration and are recorded on the implant data sheet. Once the leads were in position they were attached to the anterior pectoralis fascia using 2 sutures of 2-0 silk around each lead collar. The bacitracin- soaked sponge was removed from the pocket, hemostasis was obtained, the pacemaker was attached to the leads and placed in the pocket with the leads coiled beneath it. The incision was closed with a running double subcutaneous closure of 3-0 Vicryl absorbable suture, followed by running subcuticular skin closure of 4-0 Vicryl absorbable suture. Bacitracin ointment was placed on the incision and a dressing applied. I attest to the content of the Intraoperative Record and any orders documented therein. Any exceptions are noted below.
[2018-11-25] MEDS ORDERED: KETOROLAC TROMETHAMINE 10 MG TABLET PO PRN (11:10)
[2018-11-25] MEDS ORDERED: ACETAMINOPHEN 325 MG TAB PO PRN (11:10)
--- NOTE | 2018-11-25 11:14 | Post Anesthesia Assessment ---
Date of Service November 25, 2018 Post Sedation Assessment Vital Signs Temp Pulse Resp BP BP Pulse Ox 11/25/18 10:35 69 16 119/70 93 11/25/18 10:20 36.5 C 66 16 134/78 93 11/25/18 06:44 36.5 C 91 H 18 134/91 93 Recovery Score Activity: Moves 4 extremities Respiration: Deep Breath/Cough Circulation: +/-20% PreAnes Value Consciousness: Fully Awake Oxygen Saturation: > 92% On Room Air Discharge Sedation Level of Care: Fast Track Phase II Post Sedation Plan On clinical assessment, the patient appears to have tolerated the sedation without complications. Patient is recovering as anticipated. Patient will continue to be monitored by nursing and may be discharged when sedation discharge criteria are met per below protocol. Upon Completions of procedure and additional 15 minutes continue every 5 minute vital signs and the P.A.R. score; then discharge to a Phase I or Fast Track to Phase II per the following guidelines: * Discharge Patient to appropriate Phase II area if PAR is 8 or greater or return to pre- procedure baseline. The post - procedure orders will be as directed. * If PAR score is less than 8 or not return to pre-procedure baseline then patient will follow Phase I monitoring till PAR is reached for Phase II. The Phase I may be done in procedure room or may call to secure a Phase I area. * If naloxone or flumazenil are used for reversal, hold in Phase I for continued monitoring from when last reversal dose was given for a minimum of 60 minutes or longer pending the nurse and/or physician discretion of patient condition before discharge to Phase II. Please call the Sedation Physician to re-evaluate and complete post-note for discharge to Phase II area. Do NOT discharge from procedure sedation or Phase 1 until post- sedation evaluation note is complete by procedure /sedation MD Sedation Discharge Instructions to be given to the patient at discharge to home.
[2018-11-25 11:52] LABS: INR 1.2 (0.9-1.1)
[2018-11-25] MEDS ORDERED: WARFARIN SOD 5 MG TAB PO ONE (16:00)
[2018-11-25] MEDS ORDERED: ATORVASTATIN 40 MG TAB PO SCH (21:00)
[2018-11-26 06:58] LABS: INR 1.2 (0.9-1.1); Prothrombin Time 11.7 Seconds (9.0-12.0)
--- NOTE | 2018-11-26 07:50 | XRay Report ---
XR chest 2V routine HISTORY: EXACT TIME ORDERED Evaluate for pneumothorax and l COMPARISON: Chest 01/01/2016. FINDINGS: Interval placement of a left-sided dual-chamber pacemaker. No pneumothorax. No pleural effu sions. Bibasilar linear densities consistent with subsegmental atelectasis. The heart remains mildly enlarged. Post sternotomy changes and cardiac valve prosthesis are present. IMPRESSION: Left-sided pacemaker placement. No pneumothorax. Electronically signed by: Polo Atwood M.D. 11/26/2018 7:49 AM
[2018-11-26] MEDS ORDERED: METOPROLOL SUCC 25MG EXT REL TAB PO SCH (09:00)
[2018-11-26] MEDS ORDERED: LISINOPRIL 10 MG TAB PO SCH (09:00)
[2018-11-26] MEDS ORDERED: CEROVITE ADV FORMULA TAB PO SCH (09:00)
[2018-11-26] MEDS ORDERED: ASPIRIN 81 MG ECTAB PO SCH (09:00)
--- NOTE | 2018-11-26 09:27 | Cardiology Progress Note ---
Date of Service November 26, 2018 Assessment & Plan (1) Pacemaker: He is doing well postop day #1 following pacemaker implantation, the device is functioning well, the leads are in good position, the site looks good and he is stable for discharge. Subjective He is feeling well following pacemaker implantation yesterday, no significant incisional discomfort, no chest discomfort. Physical Exam 2 Physical Exam: His incision looks clean and dry, no significant ecchymosis, no swelling or erythema. Results & Data Vital Signs (Past 12 Hours) Vital Signs Temp Pulse Resp BP Pulse Ox 11/26/18 07:41 36.4 C L 110 H 20 150/95 H 93 11/26/18 04:00 36.9 C 100 H 16 133/87 92 11/26/18 00:00 36.8 C 109 H 16 113/75 94 Diagnostic Findings Chest x-ray: Good lead position, no pneumothorax Pacemaker evaluation: Excellent pacing and sensing characteristics Telemetry: Atrial flutter with occasional ventricular pacing, normal device function Electrocardiogram: Atrial flutter with a controlled heart rate, occasional appropriate pacing
--- NOTE | 2018-12-06 07:39 | Discharge Summary ---
Date of Service December 06, 2018 Admission HPI Per Admitting Provider This is an 83-year-old male with coronary artery disease, atrial fibrillation, syncope and presyncope, who on event monitoring had long pauses observed, he requires medications for rate control for paroxysmal atrial fibrillation and therefore required pacemaker implantation. Since his atrial fibrillation appears to be paroxysmal and we will likely try to maintain sinus rhythm a dual- chamber pacemaker was planned. Admission Exam (Per Admitting) Constitutional Constitutional: Alert, cooperative and in no distress. HEENT: Unremarkable Neck: No jugular venous distention, carotid pulses are irregular but otherwise normal and equal bilaterally without bruits. Pulmonary: Clear to auscultation bilaterally. Cardiac: Irregular rhythm with no murmur, gallop or rub. Abdomen: Soft, nontender with normal bowel sounds. Extremities: No edema. Distal pulses intact. Neurologic: No focal findings. Gait is steady. Skin: No rash, ecchymoses or petechiae. Discharge Data Procedures Performed Operation Date: 11/25/18 08:00 Actual Procedures p Pacer with A/V Leads (Dual) - Mango Ojeda MD Hospital Course (1) SSS (sick sinus syndrome): He has sick sinus syndrome with bradycardia and prior syncope, a dual- chamber pacemaker was implanted to control his bradycardia and he will require rate control medications for his atrial arrhythmia. He may require card ioversion in the future, although with atrial flutter the pacemaker may be programmed to terminate this with antitachycardia pacing which often works. We usually wait 1 month to do that. (2) Pacemaker: He is doing well postop day #1 following pacemaker implantation, the device is functioning well, the site looks good and he is stable for discharge.
== END 2018-11-26 10:35 | disposition home or self-care (01) ==
LOC: 2S 06:30 → ASU 06:30

== ENCOUNTER 2021-07-07 05:28 | Inpatient (IN) ==
--- NOTE | 2021-06-26 11:53 | Anesthesiology Consultation ---
Date of Service June 26, 2021 Assessment & Plan (1) Encounter for pre-operative examination: - COVID screening: Per assessment on 06/26: Travel screen negative, no known COVID-19 positive contacts or current COVID-19 related symptoms. Patient vaccdennis roasrio. Surgeon arranging preop COVID testing. Awaiting results. - S/P Colonoscopy (06/13/21): MAC at [facility] - EP/cardiology office visit (04/28/21): "Atrial fibrillation: Paroxysmal. He has had a few episodes over the past few months. One of these lasted several hours. Overall rate response seems elevated. I asked him to increase his metoprolol succinate to 37.5 mg daily with the intention of increasing it to 50 mg daily at some point. He continues to monitor his blood pressure. He continues on warfarin for systemic anticoagulation. Normally functioning dual- chamber permanent pacemaker. coronary artery disease: Good exercise tolerance without symptoms of coronary insufficiency or angina. mitral regurgitation: Status post repair. No murmur on examination today. Aortic dissection: Continue on beta-blockade with good blood pressure control." - Vascular hx: Chronic dissection of the suprarenal, juxtarenal and infrarenal abdominal aorta, left common iliac artery and proximal left external iliac artery, 2.7 cm right common iliac artery aneurysm per 09/11/20 CTA with no significant change compared to previous study 08/04/2019. Case reviewed with Dr. Denson. He does not feel that formal vascular clearance needed prior to surgery but would like most recent vascular office visit note to review. Received most recent vascular office visit note (09/23/20): "Patient's AAA and iliac artery aneurysms are relatively small and do not require surgical intervention at this time. They are relatively stable in size and have not shown growth in the past 3 or 4 years. We recommend that we continue with annual evaluations of this by performing aortoiliac ultrasound in 1 year.. History of thoracic ascending aortic aneurysm repair.. Patient is asymptomatic at this time. We recommend that this be reevaluated when he returns here next year by performing a CT of the chest. Patient's previous imaging was performed about a year ago and did not demonstrate any changes at that time." - Check coags AM DOS Chart Review Chart Review: Acceptable Risk for Surgery (pending evaluation AM DOS) and Patient NOT seen in Pre Admission Testing History Surgery Operation Date: 07/07/21 07:00 Proposed Procedures p Laparoscopic Sogmoid Colectomy - Eulalio Lowry, Height/Weight Height: 5 ft 10 in Weight: 79.379 kg Allergies Allergy/AdvReac Type Severity Reaction Status Date / Time No Known Allergies Allergy Verified 06/26/21 10:22 Medications Home Medications Medication Instructions Recorded Confirmed Last Taken aspirin 81 mg tablet,delayed 81 mg PO HS #0 09/12/16 06/26/21 06/12/21 release atorvastatin 40 mg tablet (Lipitor) 40 mg PO QDD #0 tab 09/12/16 06/26/21 06/12/21 multivitamin with minerals 1 tab PO QDL 11/25/18 06/26/21 06/12/21 amoxicillin 500 mg capsule 2,000 mg PO DIRECTED PRN cap 08/20/20 06/26/21 Unknown Wheeled Walker #1 ea 04/04/21 06/23/21 Unknown warfarin 5 mg tablet See Rx Instructions .ROUTE .COMPLEX 06/08/21 06/26/21 06/07/21 lisinopril 10 mg tablet 5 mg PO HS 06/11/21 06/26/21 06/12/21 metoprolol succinate 25 mg 37.5 mg PO QAM 06/26/21 06/26/21 Unknown tablet,extended release 24 hr Past Medical History Medical History Aneurysm Per 09/11/2020 aortoiliac duplex: chronic dissection of the suprarenal, juxtarenal and infrarenal abdominal aorta, left common iliac artery and proximal left external iliac artery. 2.7 cm right common iliac artery aneurysm. 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 Compared to previous study 08/04/2019, there is no significant change. Atrial fibrillation and flutter CAD (coronary artery disease) s/p CABG (2012) Chronic kidney disease, stage III (moderate) GISSELLE in 2012 requiring dialysis for "short period" of time Colon cancer CVA (cerebral vascular accident) 2012 (during a cardiac surgery) Dyslipidemia History of prostate cancer s/p radiation treatment x45 Hx of pancreatitis Hypertension Pacemaker Medtronic. Dual chamber. Implanted 2018 r/t syncopal episodes/SSS, Follows with [facility]/Dr. 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 Father , Passed age 54 of Lung Cancer (Heavy Smoker) No problems noted. Brother , Passed age 56 of Lung Cancer (Smoker) No problems noted. Sister , Passed age 67 of Lung Cancer (non-smoker) No problems noted. Brother , Passed age 68 of [place] No problems noted. Daughter No problems noted. Son No problems noted. Son No problems noted. Other No family history of adverse response to anesthesia Denies family history of Colon cancer Ovarian cancer Prostate cancer Myocardial infarction Breast cancer Past Surgical History Surgical History History of cardiac cath History of cataract surgery R/L History of colonoscopy Colonoscopy (06/13/21): MAC at [facility] History of lumpectomy of right breast 1993 - Benign History of prostate biopsy 01/11/2020 - Alan 4+5, 5+4 History of surgery 2010 - Right Hand- Dupidrydens Release History of tooth extraction History of umbilical hernia repair 01/05/2016 Hx of aortic aneurysm repair Thoracic ascending aortic repair (2012) Hx of appendectomy Hx of bilateral inguinal hernia repair Hx of cholecystectomy 2015 ([facility]) S/P CABG (coronary artery bypass graft) 2012 ([facility]) S/P mitral valve repair 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/p repair, SVG to RCA graft due to dissection Social History Smoking Status: Former smoker tobacco type: cigarettes Do You Dip or Chew Tobacco: No Smoking End Date: 1959 Hx Alcohol Use: No Alcohol type: wine alcohol intake frequency: 0-2 drinks per day Hx Substance Use: No substance use type: does not use Lab Results Anesthesia Preop Results Results Anesthesia Widget: WBC 6.15 K/uL (4.8-10.8) 06/08/21 Hgb 13.0 g/dL (14.0-18.0) L 06/08/21 Hct 37.9 % (42-52) L 06/08/21 Plt 148 K/uL (130-400) 06/08/21 Na 135 mmol/L (136-145) L 06/19/21 K 4.5 mmol/L (3.5-5.1) 06/19/21 Cl 100 mmol/L (98-107) 06/19/21 CO2 30 mmol/L (21-32) 06/19/21 BUN 26 mg/dl (7-18) H 06/19/21 Creat 1.25 mg/dl (0.6-1.4) 06/19/21 Glucose Level 80 mg/dl (70-99) 06/19/21 PT 12.9 Seconds (9.0-12.0) H 06/19/21 PTT 40.5 Seconds (21.0-31.0) H 06/08/21 INR 1.3 (0.9-1.1) H 06/19/21 Urine Color Yellow 06/08/21 Urine Appearance Clear (Clear) 06/08/21 Urine pH 6.5 (4.5-7.5) 06/08/21 Urine Specific [place] 1.008 (1.000-1.030) 06/08/21 Urine Protein Negative (Negative) 06/08/21 Urine Glucose (UA) Negative (Negative) 06/08/21 Urine Ketones Negative (Negative) 06/08/21 Urine Blood Negative (Negative) 06/08/21 Urine Nitrite Negative (Negative) 06/08/21 Urine Bilirubin Negative (Negative) 06/08/21 Urine Urobilinogen Negative (Negative) 06/08/21 Urine Leukocyte Esterase Negative (Negative) 06/08/21 Blood Type B Positive 06/08/21 Antibody Screen NEGATIVE 06/08/21 Testing Electrocardiogram Date: 06/08/21 Atrial paced rhythm with prolonged AV conduction at 62 bpm. *Poor data quality. Other Testing Pacer check (05/23/21): Normal parameters noted on battery and lead. Medtronic. 0.1% AT/AF treated events. Evidence of ATP treatment of a supraventricular arrhythmia episode. Aorto-iliac duplex (09/11/2020): chronic dissection of the suprarenal, juxtarenal and infrarenal abdominal aorta, left common iliac artery and proximal left external iliac artery. 2.7 cm right common iliac artery aneurysm. 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 Compared to previous study 08/04/2019, there is no significant change. Abdomen/Pelvis CT (06/25/21): Mild focal thickening within the mid sigmoid colon. This may correspond to the patient's known colonic lesion. A mild diverticulitis could also have a similar appearance in the appropriate clinical setting. No perforation or abscess identified. Correlation with recent colonoscopy results is recommended. Otherwise, no evidence for metastatic disease within the abdomen or pelvis. Chronic dissection and multifocal aneurysm seen within the aorta and iliac arteries as described above. This is not significantly changed. Please refer to the same day chest CT for further evaluation of the lung. This includes the stable lower lobe nodules as described above. Chest CT (06/25/21): Interval stability of multiple tiny pulmonary nodules as above. No evidence of recurrent or metastatic disease.
[2021-07-07] MEDS ORDERED: LR 15ML/HR IV SCH (06:00)
[2021-07-07] MEDS ORDERED: CIPROFLOXACIN / D5W 400 MG/200 ML BAG IV SCH (06:00)
[2021-07-07] MEDS ORDERED: metroNIDAZOLE 500 MG/100 ML BAG IV SCH (06:00)
[2021-07-07 06:29] LABS: INR 1.1 (0.9-1.1); Partial Thromboplastin Ratio 1.1; Partial Thromboplastin Time 30.2 Seconds (21.0-31.0)
[2021-07-07] MEDS ORDERED: LIDOCAINE 2% 2 ML VIAL/AMP(20MG/ML) INFIL ONE (06:47)
[2021-07-07] MEDS ORDERED: NEOSTIGMINE METHYLSULFATE 1 MG/ML 10ML VIAL ONE (06:47)
[2021-07-07] MEDS ORDERED: DEXAMETHASONE SOD INJ 4 MG/ML VIAL ONE (06:47)
[2021-07-07] MEDS ORDERED: PROPOFOL IV EMULSION 10 MG/ML 20 ML VIAL IV ONE (06:47)
[2021-07-07] MEDS ORDERED: GLYCOPYRROLATE 0.2 MG/ML VIAL ONE (06:47)
[2021-07-07] MEDS ORDERED: ONDANSETRON INJ 2 MG/ML 2 ML VIAL ONE (06:47)
[2021-07-07] MEDS ORDERED: fentaNYL citrate 100 MCG/2 ML VIAL ONE (06:47)
[2021-07-07] MEDS ORDERED: HYDROmorphone INJ 2 MG/ML SYR/VIAL IV PRN (06:53)
[2021-07-07] MEDS ORDERED: ONDANSETRON INJ 2 MG/ML 2 ML VIAL IV PRN ×2 (06:53→14:06)
[2021-07-07] MEDS ORDERED: ePHEDrine sulfate 50 MG/ML AMP IV PRN (06:53)
[2021-07-07] MEDS ORDERED: ATROPINE SULFATE 0.1 MG/ML 10ML SYR IV PRN (06:53)
[2021-07-07] MEDS ORDERED: fentaNYL citrate 100 MCG/2 ML VIAL IV PRN (06:53)
--- NOTE | 2021-07-07 06:55 | History & Physical Bridge Note ---
Date of Service July 07, 2021 History & Physical Bridge Note I have examined the patient, reviewed the History & Physical and in the interval since the performance of the History & Physical I have noted the following changes of clinical significance: no changes noted
[2021-07-07] MEDS ORDERED: BUPIVACAINE 0.5 % 5 MG/1 ML MPF 30ML VIAL ONE (07:10)
[2021-07-07] MEDS ORDERED: EPINEPHrine INJ 1 MG/ML AMP ONE (07:10)
[2021-07-07] MEDS ORDERED: ACETAMINOPHEN 1000 MG/100 ML IV IV ONE (09:17)
[2021-07-07] MEDS ORDERED: ROCURONIUM BROMIDE 10 MG/ML 5 ML VIAL IV ONE (09:34)
[2021-07-07] MEDS ORDERED: SUGAMMADEX SODIUM 200 MG/2 ML VIAL IV ONE (09:47)
--- NOTE | 2021-07-07 10:07 | Post Operative Brief Note ---
PG Immediate Post Op with CF Date of Surgery July 07, 2021 Pre & Post Diagnosis Operation Date: 07/07/21 07:15 Pre-Op Diagnosis: Sigmoid Colon Cancer Post-Op Diagnosis: Sigmoid Colon Cancer I identified the patient and participated in the time-out.: Yes Procedure Operation Date: 07/07/21 07:15 Actual Procedures p Laparoscopic Low Anterior colon resection(Not Applicable) - Eulalio Lowry DO Surgeon Eulalio Lowry DO Telesales Consultant gina Hutchins Estimated Blood Loss 10 Findings Consistent with Post-Op Diagnosis Specimens Specimen Description: A. Recto Sigmoid - Stitch Distal Margin Drains Garcia Catheter and Pepe-Dooley Drain
--- NOTE | 2021-07-07 12:10 | Anesthesiology Progress Note ---
Date of Service July 07, 2021 Anesthesia Post Procedure Vital Signs Vital Signs: Temp Pulse Pulse Resp BP Pulse Ox 07/07/21 11:35 68 20 138/71 97 07/07/21 11:20 70 20 139/69 100 07/07/21 11:10 69 18 146/79 H 100 07/07/21 11:00 36.4 C L 66 18 148/73 H 100 07/07/21 10:50 71 16 145/77 H 99 07/07/21 10:40 70 12 132/76 94 07/07/21 10:30 71 16 154/76 H 96 07/07/21 10:20 66 16 154/64 H 98 07/07/21 10:10 36.1 C L 67 16 151/68 H 98 07/07/21 06:03 36.9 C 80 20 163/94 H 96 Transfer of Care Handoff Completed per policy Notes Mental Status: alert / awake / arousable and participated in evaluation Patient Amnestic to Procedure: Yes Nausea / Vomiting: adequately controlled Pain: adequately controlled Airway Patency, RR, SpO2: stable & adequate BP & HR: stable & adequate Hydration State: stable & adequate Anesthetic Complications: no major complications apparent
--- NOTE | 2021-07-07 13:04 | Operative Report ---
PG Post Operative Report Pre & Post Diagnosis Operation Date: 07/07/21 07:15 Pre-Op Diagnosis: Sigmoid Colon Cancer Post-Op Diagnosis: Sigmoid Colon Cancer I identified the patient and participated in the time-out.: Yes Procedure Operation Date: 07/07/21 07:15 Actual Procedures p Laparoscopic Low Anterior Colectomy(Not Applicable) - Eulalio Lowry DO Surgeon Eulalio Lowry, Sap Ppm Consultant gina Hutchins Estimated Blood Loss 10 Findings Consistent with Post-Op Diagnosis Specimens rectosigmoid colon Description of Procedure After informed consent was obtained the patient was taken to the operating room and placed in supine position. After successful intubation an orogastric tube as well as a Garcia catheter was placed. The patient was then placed in a low lithotomy position. The abdomen was shaved and sterilely prepped and draped in usual fashion. I began with a supraumbilical incision with an 11 blade scalpel. I carried this down through the soft tissue using cautery. The anterior rectus fascia was opened using cautery and two #0 Vicryl stay sutures were placed. Peritoneum was entered using blunt finger penetration and a finger sweep was performed. A 12 mm Hanson trocar was placed and the abdomen was insufflated to 18 mmHg. Laparoscope was inserted and the abdomen examined in 360 degrees. No gross abnormalities were identified. A right lower quadrant 12 mm port site and a right mid abdominal 5 mm port site were both placed under direct vision. Eventually a left lower quadrant 5 mm port was also placed. The patient was placed in a Trendelenburg position and slightly airplaned towards the right. I was able to readily identify the proximal tattoo. The distal tattoo ended up being more distal than I anticipated and was actually closer to the rectum. I began by mobilizing the white line of Toldt using traction and blunt dissection as well as the harmonic scalpel. I carried this down over the pelvic brim into the pelvis and down past the peritoneal reflection. At this point I was able to identify the distal tattoo bonifacio. I was able to use the harmonic scalpel to make a small window in the mesentery and again carried this distally. This was down past the peritoneal reflection. I then made a small window in the rectosigmoid mesentery. I replaced the right lower quadrant trocar with a 15 mm trocar and then used a CAITLIN black cartridge 60 mm stapler to transect the rectosigmoid colon. Once we did this we then used traction and using harmonic scalpel to take down the mesentery staying as low as possible. We continued to work our way proximally. Once we were several inches above the proximal tattoo bonifacio we then extended the left lower quadrant incision including the fascia. We toweled off the incision and delivered the sigmoid colon. Several inches proximal to the proximal tattoo bonifacio we placed a bowel clamp and transected the colon and passed it to the back table. I then used sizers to estimate the lumen size to be 25 mm. I used 2-[address] a pursestring. We then placed the anvil of 25 mm circular stapler into the lumen and secured it using the pursestring. At this point I did examine the specimen on the back table. It appeared as though we had good distal margins. I marked the distal margin using a silk stitch. We then changed our gloves. We placed the anvil and the colon back into the abdomen and closed the fascia of the left lower quadrant incision using 0 PDS in a running fashion. We then reinsufflated the abdomen. The anvil and colon laid over the pelvic brim easily with no tension. We first used sizers to come in the rectal stump followed by the handle of the circular stapler. Rafal was deployed above the staple line of the rectal stump. The anvil was connected to the handle and they were secured together and fired creating a circular functional end-to-end anastomosis. Both donuts were intact. I then filled the pelvis with water and we insufflated the anastomosis. It was airtight with no evidence of an anastomotic leak. There was adequate hemostasis. Thoroughly irrigated the pelvis a final time. A 10 flat Pepe-Dooley drain was placed into the pelvis and secured to skin using 2-0 silk. Again no other gross abnormalities were seen. The trochars were all removed. The fascia of the camera port was closed using 0 Vicryl in [id number] fashion. All wounds were irrigated and closed in 4-0 Monocryl. Marcaine with epinephrine was injected around them. Dermabond glue was used as a dressing. The patient was awakened extubated and transferred to recovery in stable condition. My physician inside sales assistant was present for the entire case. He helped prep the patient. He was instrumental in running the camera, exposure as well as assisting with the anastomosis wound closure and dressing placement. I attest to the content of the Intraoperative Record and any orders documented therein. Any exceptions are noted below.
[2021-07-07] MEDS ORDERED: MoRPHine SULFATE 4 MG/ML 1 ML CARP\\VIAL IV PRN (14:06)
[2021-07-07] MEDS ORDERED: MoRPHine SULFATE 2 MG/ML CARP IV PRN (14:06)
[2021-07-07] MEDS: LACTATED RINGER'S 1,000 ML IV SCH ×2 (14:32→22:13)
[2021-07-07] MEDS: ACETAMINOPHEN 1,000 MG/100 ML VIAL IV SCH (16:40)
[2021-07-07] MEDS: CIPROFLOXACIN / D5W 400 MG/200 ML BAG IV SCH (18:16)
[2021-07-07] MEDS: ASPIRIN 81 MG ECTAB PO SCH (20:56)
[2021-07-08] MEDS: ACETAMINOPHEN 1,000 MG/100 ML VIAL IV SCH ×3 (01:12→17:25)
[2021-07-08] MEDS: LACTATED RINGER'S 1,000 ML IV SCH ×3 (06:17→23:11)
[2021-07-08 06:36] LABS: Basophils # (auto) 0.01 K/uL (0-0.2); Basophils % (auto) 0.1 %; Eosinophils # (auto) 0.04 K/uL (0-0.5); Eosinophils % (auto) 0.5 %; Hematocrit (blood only) 31.7 % (42-52); Hemoglobin 10.8 g/dL (14.0-18.0); Immature Granulocytes # (auto) 0.02 K/uL (0.00-0.02); Immature Granulocytes % (auto) 0.3 %; Lymphocytes # (auto) 0.67 K/uL (1.2-3.4); Lymphocytes % (auto) 9.2 %; Mean Corpuscular Hemoglobin 32.7 pg (25-34); Mean Corpuscular Hgb Conc 34.1 g/dL (32-36); Mean Corpuscular Volume 96.1 fL (80-100); Mean Platelet Volume 8.5 fL (7.4-10.4); Monocytes # (auto) 0.82 K/uL (0.11-0.59); Monocytes % (auto) 11.3 %; Neutrophils # (auto) 5.72 K/uL (1.4-6.5); Neutrophils % (auto) 78.6 %; Platelet Count 134 K/uL (130-400); RDW Coefficient of Variation 13.6 % (11.5-14.5); RDW Standard Deviation 47.8 fL (36.4-46.3); White Blood Count 7.28 K/uL (4.8-10.8)
[2021-07-08 06:47] LABS: INR 1.2 (0.9-1.1); Prothrombin Time 11.6 Seconds (9.0-12.0)
[2021-07-08 07:04] LABS: BUN Creatinine Ratio 12.1 (10-20); Est GFR (African American) 63.7 ml/min; Potassium 4.1 mmol/L (3.5-5.1)
[2021-07-08] MEDS: CIPROFLOXACIN / D5W 400 MG/200 ML BAG IV SCH (07:20)
[2021-07-08] MEDS: METOPROLOL SUCC 25MG EXT REL TAB PO SCH (09:29)
[2021-07-08] MEDS: ENOXAPARIN INJ 30 MG/0.3 ML SYR SQ SCH (09:34)
--- NOTE | 2021-07-08 11:34 | Surgery Progress Note ---
Date of Service July 08, 2021 Assessment & Plan (1) Malignant neoplasm of sigmoid colon: Plan: POD 1 lap LAR seen with Dr. Lowry keep on ice/sips for today keep west until tomorrow slight drop in H&H, will monitor, VSS, small anastomotic bleed would be expected as above. looks good follow h/h keep west one more day. pain controlled. Admission and Anticipated Discharge Date Admission Date: July 07, 2021 Subjective had liquid BM with some blood, no nausea, pain controlled Physical Exam Gastrointestinal (Abdomen): Inspection/Auscultation: + abdominal surgical drain present (minimal output overnight); abdomen not distended Percussion/Palpation: abdomen soft Results & Data ([facility]) Vital Signs (Past 12 Hours) Vital Signs Temp Pulse Resp BP Pulse Ox 07/08/21 07:45 36.9 C 70 16 137/69 94 07/08/21 03:22 36 C L 70 16 127/65 92 PG Care Time/CCT Total # of Minutes Spent Total Time Spent with Patient: Total time spent is greater than 50% in coordination of care (as documented) at patient's floor/unit and/or counseling patient: Coding Level of Care Code None Diagnoses Malignant neoplasm of sigmoid colon C18.7
[2021-07-08] MEDS: ASPIRIN 81 MG ECTAB PO SCH (20:44)
[2021-07-09] MEDS: ACETAMINOPHEN 1,000 MG/100 ML VIAL IV SCH ×2 (01:24→08:47)
[2021-07-09 07:38] LABS: Basophils # (auto) 0.01 K/uL (0-0.2); Basophils % (auto) 0.1 %; Eosinophils # (auto) 0.21 K/uL (0-0.5); Eosinophils % (auto) 3.1 %; Hematocrit (blood only) 29.2 % (42-52); Hemoglobin 9.7 g/dL (14.0-18.0); Immature Granulocytes # (auto) 0.01 K/uL (0.00-0.02); Immature Granulocytes % (auto) 0.1 %; Lymphocytes # (auto) 0.67 K/uL (1.2-3.4); Lymphocytes % (auto) 9.8 %; Mean Corpuscular Hemoglobin 32.8 pg (25-34); Mean Corpuscular Hgb Conc 33.2 g/dL (32-36); Mean Corpuscular Volume 98.6 fL (80-100); Mean Platelet Volume 8.3 fL (7.4-10.4); Monocytes # (auto) 0.69 K/uL (0.11-0.59); Neutrophils # (auto) 5.28 K/uL (1.4-6.5); Neutrophils % (auto) 76.9 %; Platelet Count 123 K/uL (130-400); RDW Coefficient of Variation 13.8 % (11.5-14.5); RDW Standard Deviation 49.1 fL (36.4-46.3); Red Blood Count 2.96 M/uL (4.7-6.1); White Blood Count 6.87 K/uL (4.8-10.8)
--- NOTE | 2021-07-09 07:57 | Surgery Progress Note ---
Date of Service July 09, 2021 Assessment & Plan (1) Malignant neoplasm of sigmoid colon: Plan: POD 2 lap LAR start on clears decrease IVF remove west ambulate as above. doing well. +bm. no more blood per rectum path pending Admission and Anticipated Discharge Date Admission Date: July 07, 2021 Subjective multiple loose BMs, no nausea, minimal pain Physical Exam Constitutional: WD/WN, vitals as above Gastrointestinal (Abdomen): Inspection/Auscultation: + abdominal surgical drain present (15 cc); abdomen not distended Percussion/Palpation: abdomen soft UOP 500 overnight Results & Data ([facility]) Vital Signs (Past 12 Hours) Vital Signs Temp Pulse Pulse Resp BP BP Pulse Ox 07/08/21 22:12 36.9 C 80 18 159/76 H 92 07/08/21 20:44 79 147/73 H PG Care Time/CCT Total # of Minutes Spent Total Time Spent with Patient: Total time spent is greater than 50% in coordination of care (as documented) at patient's floor/unit and/or counseling patient: Coding Level of Care Code None Diagnoses Malignant neoplasm of sigmoid colon C18.7
[2021-07-09 08:02] LABS: BUN Creatinine Ratio 12.4 (10-20); Calcium 8.4 mg/dl (8.5-10.1); Creatinine Clr Calc Pharmacy 58.9 ml/min; Est GFR (African American) 85.9 ml/min; Est GFR (Non-African American) 74.1 ml/min
[2021-07-09] MEDS: LACTATED RINGER'S 1,000 ML IV SCH ×3 (08:49→21:32)
[2021-07-09] MEDS: ENOXAPARIN INJ 30 MG/0.3 ML SYR SQ SCH (08:50)
[2021-07-09] MEDS: METOPROLOL SUCC 25MG EXT REL TAB PO SCH (08:51)
[2021-07-09] MEDS ORDERED: ACETAMINOPHEN 500 MG TAB PO PRN (16:59)
[2021-07-09] MEDS: ASPIRIN 81 MG ECTAB PO SCH (20:12)
[2021-07-10 07:37] LABS: Basophils # (auto) 0.02 K/uL (0-0.2); Basophils % (auto) 0.3 %; Eosinophils # (auto) 0.39 K/uL (0-0.5); Eosinophils % (auto) 6.5 %; Hematocrit (blood only) 30.3 % (42-52); Hemoglobin 10.2 g/dL (14.0-18.0); Immature Granulocytes # (auto) 0.02 K/uL (0.00-0.02); Immature Granulocytes % (auto) 0.3 %; Lymphocytes # (auto) 0.63 K/uL (1.2-3.4); Lymphocytes % (auto) 10.5 %; Mean Corpuscular Hemoglobin 32.6 pg (25-34); Mean Corpuscular Hgb Conc 33.7 g/dL (32-36); Mean Corpuscular Volume 96.8 fL (80-100); Mean Platelet Volume 8.4 fL (7.4-10.4); Monocytes # (auto) 0.68 K/uL (0.11-0.59); Monocytes % (auto) 11.3 %; Neutrophils # (auto) 4.26 K/uL (1.4-6.5); Neutrophils % (auto) 71.1 %; Platelet Count 130 K/uL (130-400); RDW Coefficient of Variation 13.7 % (11.5-14.5); RDW Standard Deviation 48.3 fL (36.4-46.3); Red Blood Count 3.13 M/uL (4.7-6.1)
[2021-07-10 08:03] LABS: Calcium 8.5 mg/dl (8.5-10.1); Creatinine Clr Calc Pharmacy 57.6 ml/min; Est GFR (African American) 83.7 ml/min; Est GFR (Non-African American) 72.2 ml/min; Potassium 3.8 mmol/L (3.5-5.1)
[2021-07-10] MEDS: METOPROLOL SUCC 25MG EXT REL TAB PO SCH (08:11)
--- NOTE | 2021-07-10 08:56 | Surgery Progress Note ---
Date of Service July 10, 2021 Assessment & Plan (1) Malignant neoplasm of sigmoid colon: Plan: POD 3 lap LAR advance to fulls d/c IVF labs stable as above. doing well. +bm. no more blood per rectum path pending as above. doing great. advance diet. possible d/c tomorrow path now back...reviewed with pt Admission and Anticipated Discharge Date Admission Date: July 07, 2021 Subjective some flatus, no recent BMs, tolerating clears Physical Exam Constitutional: WD/WN, vitals as above Gastrointestinal (Abdomen): Inspection/Auscultation: + abdominal surgical incision (dry, no erythema) and + abdominal surgical drain present (20 cc); abdomen not distended Percussion/Palpation: abdomen soft Results & Data ([facility]) Vital Signs (Past 12 Hours) Vital Signs Temp Pulse Resp BP BP Pulse Ox 07/10/21 07:25 36.9 C 82 16 144/79 H 91 07/09/21 22:05 37.2 C 79 18 148/77 H 93 PG Care Time/CCT Total # of Minutes Spent Total Time Spent with Patient: Total time spent is greater than 50% in coordination of care (as documented) at patient's floor/unit and/or counseling patient: Coding Level of Care Code None Diagnoses Malignant neoplasm of sigmoid colon C18.7
[2021-07-10] MEDS: ENOXAPARIN INJ 30 MG/0.3 ML SYR SQ SCH (09:06)
[2021-07-10] MEDS ORDERED: oxyCODONE HCL IR 5 MG TAB (IMMEDIATE RELEASE) PO PRN (10:08)
[2021-07-10] MEDS: ASPIRIN 81 MG ECTAB PO SCH (20:42)
[2021-07-10 22:19] VITALS: TEMP 98.4
[2021-07-11 06:04] LABS: Basophils # (auto) 0.01 K/uL (0-0.2); Basophils % (auto) 0.2 %; Eosinophils # (auto) 0.37 K/uL (0-0.5); Eosinophils % (auto) 8.1 %; Hematocrit (blood only) 28.6 % (42-52); Hemoglobin 9.6 g/dL (14.0-18.0); Immature Granulocytes # (auto) 0.01 K/uL (0.00-0.02); Immature Granulocytes % (auto) 0.2 %; Lymphocytes # (auto) 0.62 K/uL (1.2-3.4); Lymphocytes % (auto) 13.6 %; Mean Corpuscular Hemoglobin 32.4 pg (25-34); Mean Corpuscular Hgb Conc 33.6 g/dL (32-36); Mean Corpuscular Volume 96.6 fL (80-100); Mean Platelet Volume 8.1 fL (7.4-10.4); Monocytes # (auto) 0.51 K/uL (0.11-0.59); Monocytes % (auto) 11.2 %; Neutrophils # (auto) 3.05 K/uL (1.4-6.5); Neutrophils % (auto) 66.7 %; Platelet Count 116 K/uL (130-400); RDW Coefficient of Variation 13.6 % (11.5-14.5); RDW Standard Deviation 47.7 fL (36.4-46.3); Red Blood Count 2.96 M/uL (4.7-6.1); White Blood Count 4.57 K/uL (4.8-10.8)
[2021-07-11 06:39] LABS: BUN Creatinine Ratio 8.6 (10-20); Calcium 8.3 mg/dl (8.5-10.1); Creatinine Clr Calc Pharmacy 60.8 ml/min; Est GFR (African American) 89.3 ml/min; Est GFR (Non-African American) 77.1 ml/min; Potassium 3.7 mmol/L (3.5-5.1)
[2021-07-11 07:30] VITALS: O2SAT 91
[2021-07-11] MEDS: ENOXAPARIN INJ 30 MG/0.3 ML SYR SQ SCH (07:33)
[2021-07-11] MEDS: METOPROLOL SUCC 25MG EXT REL TAB PO SCH (07:33)
--- NOTE | 2021-07-11 08:23 | Surgery Progress Note ---
Date of Service July 11, 2021 Assessment & Plan (1) Malignant neoplasm of sigmoid colon: Plan: POD#4 laparoscopic low anterior resection pt doing well. WBC 4. VSS tolerating full liquids, + bowel function pain is tolerable and improving. only taking tylenol will advance to low fiber this AM. will consult dietary for education on low fiber diet if tolerates diet and pain remains controlled plan for possible dispo to home later today. will pull oumou prior to dispo f/u with Dr. Lowry in clinic within 2 weeks as above. doing great. benjamín low residue diet. ok for d/c d/c OUMOU instructions given Admission and Anticipated Discharge Date Admission Date: July 07, 2021 Subjective Patient is feeling well. Says his abdominal tightness is improving, mostly only present when moving in and out of bed. At rest he denies pain. He tolerated full liquids yesterday, no nausea. He reports two BM's yesterday evening. He has been up ambulating. Physical Exam Physical Exam: awake/alert, sitting up in chair Gastrointestinal (Abdomen): Inspection/Auscultation: + abdominal surgical incision (c/d/i) and + abdominal surgical drain present (serosang) Percussion/Palpation: + abdomen tender (some armaan-incisional tenderness around LLQ wound) and abdomen soft Results & Data ([facility]) Vital Signs (Past 12 Hours) Vital Signs Temp Pulse Pulse Resp BP Pulse Ox 07/11/21 07:29 36.9 C 77 16 166/73 H 91 07/10/21 22:17 36.9 C 81 18 109/63 94 PG Care Time/CCT Total # of Minutes Spent Total Time Spent with Patient: Total time spent is greater than 50% in coordination of care (as documented) at patient's floor/unit and/or counseling patient: Coding Level of Care Code None Diagnoses Malignant neoplasm of sigmoid colon C18.7
[2021-07-11 11:23] VITALS: BP 157/75; PULSE 62
--- NOTE | 2021-07-18 08:36 | Discharge Summary ---
Date of Service July 11, 2021 Principal Diagnosis Rectosigmoid cancer Discharge Exam Constitutional WD/WN, vitals as above Gastrointestinal (Abdomen) Inspection/Auscultation: + abdominal surgical incision (dry, no erythema); abdomen not distended Percussion/Palpation: abdomen soft Discharge Data Allergies Allergy/AdvReac Type Severity Reaction Status Date / Time No Known Allergies Allergy Verified 06/26/21 10:22 Procedures Performed Operation Date: 07/07/21 07:15 Actual Procedures p Laparoscopic Sigmoid Colectomy(Not Applicable) - Eulalio Lowry DO Hospital Course (1) Malignant neoplasm of sigmoid colon: 86 y/o male with sigmoid colon mass taken to the OR for laparoscopic resection. Mass was lower than expected and required low anterior resection. The procedure was well tolerated, he was transferred to the surgical [facility]. Garcia was left for 48 hours. Lovenox was used for DVT prophylaxis. He was started on clears on POD 2. He was able to tolerate full liquids and began having BMs on POD 3. He tolerated low fiber diet on day 4 and was stable for discharge home. Total Time Total Time Spent Total Time Spent (In Minutes): 20 Discharge Plan Discharge Items Patient Disposition: Home - Self-Care Reason For Visit: COLON MASS Discharge Diagnosis: laparoscopic sigmoid colon resection Activity: Per Instructions section Lifting: No more than 10 pounds Bathing Comment: may shower; no soaking in tubs/pools Exercise/Sports: Wait until after follow-up appointment Driving/Machine Use: no driving while taking narcotics for pain Non-emergency contact: Surgeon Call non-emergency contact if: you have any medication questions, your symptoms worsen, your pain is not controlled, your pain is worsening, you have a fever, your temperature is above 101.5, your wound has increased redness, your wound has increased drainage and your wound pain has increased Follow-up/Referrals: Fiorella Mart MD [Primary Care Provider] - Eulalio Lowry DO [Surgeon] - 07/23/21 1:30 pm () Diet: Low Fiber Addtl Attending Provider Instructions: If you do not require a narcotic for management of your pain you may purchase and take Tylenol over the counter. Do not take the narcotic and Tylenol together as they both contain Acetaminophen and you should not exceed >3grams of Acetaminophen within a 24 hour time period You may cover the site where your surgical drain was with dry 4x4 gauze and adhere with medipore tape. Please change the dressing daily and as needed until it is healed and no longer leaking fluid. Please have INR checked this coming wednesday or as discussed. Pending Studies at Discharge: Yes Studies:: surgical pathology Stand-Alone Forms: My [facility], Smoking Cessation Medications and DC Order Prescriptions: New hydrocodone-acetaminophen 5-325 mg tablet 1 - 2 tab PO .q4h- q6h PRN (Reason: pain, for initial therapy, max 6 tabs per day ) Qty: 15 RF: 0 Continued atorvastatin [Lipitor] 40 mg Tablet 40 mg PO QDD Qty: 0 RF: 0 aspirin 81 mg Tablet,Delayed Release (Dr/Ec) 81 mg PO HS Qty: 0 RF: 0 (DME) Wheeled Walker Misc See Rx Instructions .Route Qty: 1 RF: 0 multivitamin with minerals Tablet 1 tab PO QDL RF: 0 amoxicillin 500 mg capsule 2,000 mg PO DIRECTED PRN (Reason: DENTAL APPOINTMENT) RF: 0 lisinopril 10 mg tablet 5 mg PO HS RF: 0 warfarin 5 mg tablet See Rx Instructions mg .ROUTE .COMPLEX RF: 0 metoprolol succinate 25 mg tablet extended release 24 hr 37.5 mg PO QAM RF: 0 No Action furosemide [Lasix] 20 mg tablet 20 mg PO DAILY Qty: 3 RF: 0 Discharge Orders: Discharge Order (Routine); Ordered 07/11/21 Ordered By: Eulalio Garland/Other Patient Handouts: Low-Fiber Diet Admission Data Admit Date/Time: 07/07/21 10:27 Attending Provider: Eulalio Lowry Admit Provider: Eulalio Lowry Primary Care Provider: Fiorella Mart Other Interventions: Discharge Summary Assessment (RN) Last Done: 07/11/21 11:22 Coding Level of Care Code D/C DAY MANAGEMENT <30 MINS Diagnoses Malignant neoplasm of sigmoid colon C18.7
== END 2021-07-11 13:51 | disposition home or self-care (01) | DRG 331 ==
LOC: ASU 05:28 → 3E 10:27